=== PATIENT | female | born 1940 | race Caucasian/White ===

== ENCOUNTER → 2022-01-11 | Outpatient (CLI) | payer MEDICARE | LOC: EXRD 15:47 | DX: E01.0 Iodine-deficiency related diffuse (endemic) goiter (principal) | CPT/HCPCS: 76536 ==

== ENCOUNTER → 2022-02-11 | Day surgery (SDC) | payer MEDICARE ==
[~2022-02-11] MED LIST: LEVOTHYROXINE25 MC1 PO; PROTONIX40 MG PO
== END | disposition home or self-care (01) ==
LOC: OR 07:40
DX: K22.2 Esophageal obstruction (principal); K21.9 Gastro-esophageal reflux disease without esophagitis; K44.0 Diaphragmatic hernia with obstruction, without gangrene; K22.4 Dyskinesia of esophagus; E03.9 Hypothyroidism, unspecified; E66.9 Obesity, unspecified; Z68.31 Body mass index [BMI] 31.0-31.9, adult; Z79.899 Other long term (current) drug therapy
CPT/HCPCS: J2001; J2704